=== PATIENT | male | born 2000 | race Caucasian/White ===

== ENCOUNTER 2018-05-25 11:55 | Outpatient (CLI) | payer OTHER ==
[2018-05-25 12:37] LABS: HB2 TOTAL 19.2 g/dL; HEMOGLOBIN A1C 0.6 g/dL
== END 2018-05-25 11:56 | disposition home or self-care (01) ==
LOC: LAB 11:55
PROVIDERS: ATTEND Pediatrics
DX: R35.8 Other polyuria (principal); R63.4 Abnormal weight loss
CPT/HCPCS: 36415; 82947; 83036; 84443